=== PATIENT | male | born 1980 ===

== ENCOUNTER 2017-04-12 13:51 | Outpatient (CLI) | payer BC ==
--- NOTE | 2017-04-13 08:47 | Ultrasound Report ---
Sonogram right upper quadrant: History: Elevated liver enzymes. Findings: Uniform echogenicity liver. No mass. No intrahepatic or extrahepatic duct dilatation. Common bile duct diameter 3 mm. Gallbladder wall thickness 2 mm. No calculi in the gallbladder. No pericholecystic fluid. Right kidney 9.6 x 4.8 x 4.5 cm. No mass. No hydronephrosis. Pancreas obscured by bowel gas. Impression: Essentially negative sonogram right upper quadrant.
== END 2017-04-12 13:52 | disposition home or self-care (01) ==
LOC: SPVWC 13:51
PROVIDERS: ATTEND Internal Medicine
DX: R94.5 Abnormal results of liver function studies (principal)
CPT/HCPCS: 76705